=== PATIENT | male | born 1975 ===

== ENCOUNTER → 2016-11-10 | Outpatient (REF) ==
--- NOTE | 2016-11-10 12:09 | REP ---
Clinical: Pain and degenerative disease. Technique: AP and lateral views of the forearm. Findings: AP view best demonstrates cortical irregularity involving the distal humerus at the elbow as well as involving the proximal humerus suggesting early degenerative changes. There appears to be shortening of the proximal humerus which requires correlation and is of uncertain etiology. Surrounding soft tissues are grossly unremarkable. Mild degenerative changes at the wrist or also is appreciated including heterogeneous subchondral changes and elements of joint space narrowing. Impression: Degenerative changes as described above including suspected shortening of the proximal radius of uncertain etiology. Signed by Reza Cox MD 11/10/2016 11:59 A
--- NOTE | 2016-11-10 12:10 | REP ---
Clinical: Pain and degenerative changes. Technique: AP, lateral, bilateral oblique views of the right elbow. Findings: Degenerative changes include cortical irregularities, subtle periarticular calcifications primarily noted adjacent to the humeral condyles and subtle mottled/washed-out appearance to the cortex in contour of the proximal ulna. There is a shortened appearance to the proximal radius without a normal radial head and findings may be related to erosive/destructive changes from prior incident including infection or trauma. No acute fracture. No obvious effusion. Subcutaneous emphysema. Impression: Significant degenerative changes as described above require clinical correlation. Signed by Reza Cox MD 11/10/2016 12:01 P
== END ==
LOC: M SMT 10:59
PROVIDERS: ATTEND Internal Medicine
DX: Z02.71 Encounter for disability determination (principal)